=== PATIENT | female | born 1965 | race Caucasian/White ===

== ENCOUNTER 2017-05-22 13:18 | Emergency (ER) | payer OTHER ==
[~2017-05-22] VITALS: Ht 162.6 cm; Wt 86.1 kg
[2017-05-22] MEDS ORDERED: NORCO 5/3251 TABLET PO (16:18)
[2017-05-22 16:35] VITALS: BP 121/81
== END 2017-05-22 16:36 | disposition home or self-care (01) ==
LOC: EME 13:18
PROC: 2W3RX1Z Immobilization of Left Lower Leg using Splint (ICD-10-PCS; principal; 2017-05-22)
DX: S86.012A Strain of left Achilles tendon, initial encounter (principal); X50.9XXA Other and unspecified overexertion or strenuous movements or postures, initial encounter; Y93.01 Activity, walking, marching and hiking; I10 Essential (primary) hypertension; F32.9 Major depressive disorder, single episode, unspecified
CPT/HCPCS: 93971; 99281; 99282